=== PATIENT | female | born 1960 | race Two or more races ===

== ENCOUNTER 2024-08-19 04:47 | Emergency (ER) | payer OTHER, MEDICAID ==
[~2024-08-19] VITALS: Ht 144.8 cm; Wt 74.0 kg
[~2024-08-19 04:47] MED LIST: METF-370 PO; ROSU10TA64 PO
--- NOTE | 2024-08-19 04:50 | ED.PDOC ---
History of Present Illness HPI Comments 64 y/o obese F, with a history of bulging disc and sciatica, presents with 1x month history of hematuria and dysuria and 4x day history of left flank pain, chills, and nausea. Pain is a 9/10 in severity. No prior history of symptoms in the past. Denies any abdominal pain, vomiting, fever, chills, or further associated symptoms. Time Seen by MD: 04:50 Reviewed Notes: Nurses Notes, Medications, Allergies Allergies: Coded Allergies: No Known Drug Allergy (Unverified Allergy, Unknown, 08/19/24) Home Meds Active Scripts Gabapentin (Once-Daily) (Gabapentin) 300 Mg Tab, 300 MG PO Q6HP PRN, #30 TAB Prov:BEN JACOBS MD 08/19/24 Cefdinir (Cefdinir) 300 Mg Cap, 1 CAP PO BID for 10 Days, #20 CAP Prov:BEN JACOBS MD 08/19/24 Information Source: Patient Mode of Arrival: Ambulatory Severity: Moderate Timing: Days Duration: Since onset Prehospital treatment: None Past Medical History Past Medical History (Other): Bulding disc sciatica Surgical History: Hernia Repair Surgical History (Other): back surgery All Other Systems: Reviewed and Negative (Comprehensive review of systems are negative unless otherwise stated in HPI) Physical Exam General Appearance: Mild Distress, Obese HEENT: Normal ENT Inspection, Pharynx Normal, TMs Normal Neck: Full Range of Motion, Non-Tender, Normal, Normal Inspection Respiratory: Chest Non-Tender, Lungs Clear, No Accessory Muscle Use, No Respira tory Distress, Normal Breath Sounds Cardiovascular: No Edema, No JVD, No Murmur, No Gallop, Normal Peripheral Pulses, Regular Rate/Rhythm Breast Exam: Deferred Gastrointestinal: No Organomegaly, Non Tender, No Pulsatile Mass, Normal Bowel Sounds, Soft Genitalia: Deferred Pelvic: Deferred Rectal: Deferred Extremities: No calf tenderness, Normal capillary refill, Normal inspection, Normal range of motion, Non-tender, No pedal edema Musculoskeletal : Location: Left Extremity Location: Other (CVA) Apperance: Normal, Tenderness Neurologic: Alert, full time II-XII nml as Tested, No Motor Deficits, Normal Affect, Normal Mood, No Sensory Deficits Cerebellar Function: Normal Reflexes: Normal Skin: Dry, Normal Color, Warm Lymphatic: No Adenopathy Was a procedure done? Was a procedure done?: No Differential Dx Considerations may include: Nephrolithiasis, pyelonephritis, cystitis, musculoskeletal pain, ovarian cysts, ovarian torsion, PID, among others X-Ray, Labs, Meds, VS Vital Signs Date Time Temp Pulse Resp B/P (MAP) Pulse Ox O2 Delivery O2 Flow Rate FiO2 08/19/24 06:07 90 21 98 Room Air 08/19/24 06:07 100.4 90 21 156/74 (101) 98 100.4 08/19/24 06:06 90 21 156/74 08/19/24 06:01 100.4 08/19/24 05:04 99.5 90 16 133/79 (97) 96 99.5 Lab Test 08/19/24 05:13 08/19/24 05:00 Range/Units White Blood Count 10.8 4.4-10.8 10^3/uL Red Blood Count 4.67 4.0-5.20 10^6/uL Hemoglobin 13.8 12.2-16.2 g/dL Hematocrit 40.8 36.0-46.0 % Mean Corpuscular Volume 87.2 80.0-100.0 fL Mean Corpuscular Hemoglobin 29.5 28.0-32.0 pg Mean Corpuscular Hemoglobin Concent 33.8 32.0-36.0 g/dL Red Cell Distribution Width 13.8 11.8-14.3 % Platelet Count 208 140-450 10^3/uL Mean Platelet Volume 8.4 6.9-10.8 fL Neutrophils (%) (Auto) 79.2 37.0-80.0 % Lymphocytes (%) (Auto) 13.9 10.0-50.0 % Monocytes (%) (Auto) 6.6 0.0-12.0 % Eosinophils (%) (Auto) 0.0 0.0-7.0 % Basophils (%) (Auto) 0.3 0.0-2.0 % Neutrophils # (Auto) 8.5 1.6-8.6 10 ^3/uL Lymphocytes # (Auto) 1.5 0.4-5.4 10 ^3/uL Monocytes # (Auto) 0.7 0-1.3 10 ^3/uL Eosinophils # (Auto) 0 0-0.8 10 ^3/uL Basophils # (Auto) 0 0-0.2 10 ^3/uL Nucleated Red Blood Cells 0.1 % Sodium Level 142 136-145 mmol/L Potassium Level 3.2 L 3.5-5.1 mmol/L Chloride Level 106 98-107 mmol/L Carbon Dioxide Level 24 20-31 mmol/L Anion Gap 12 5-15 Blood Urea Nitrogen 12 9-23 mg/dL Creatinine 0.74 0.550-1.02 mg/dL Glomerular Filtration Rate Calc 90 >90 mL/min BUN/Creatinine Ratio 16.2 10.0-20.0 Serum Glucose 110 H 74-106 mg/dL Lactic Acid Level 1.2 0.4-2.0 mmol/L Calcium Level 8.6 L 8.7-10.4 mg/dL Total Bilirubin 0.5 0.2-1.0 mg/dL Aspartate Amino Transferase (AST) 22 <34 U/L Alanine Aminotransferase (ALT) 22 7-40 U/L Alkaline Phosphatase 120 H 46-116 U/L Total Protein 7.0 5.7-8.2 g/dL Albumin 4.4 3.2-4.8 g/dL Lipase 33 12-53 U/L Urine Color Colorless Yellow Urine Clarity Turbid H Clear Urine pH 6.0 5.0-9.0 Urine Specific [place] 1.024 1.001-1.035 Urine Protein 1+ H Negative Urine Ketones Negative Negative Urine Blood 3+ H Negative /uL Urine Nitrite Negative Negative Urine Bilirubin Negative Negative Urine Urobilinogen Normal Negative mg/dL Urine Leukocyte Esterase 3+ Negative /uL Urine RBC 1894 0 - 4 /hpf Urine Microscopic WBC 409 H 0-5 /HPF Urine Squamous Epithelial Cells Few <5 /hpf Urine Bacteria None seen None Seen /hpf Urine Mucus Few None Seen Urine Glucose Normal Normal mg/dL Current Medications Medications (Trade) Dose Ordered Sig/Veronica Route Start Time Stop Time Status Last Admin Ondansetron HCl (Zofran) 4 mg ONCE ONCE IV 08/19/24 05:00 08/19/24 05:01 DC 08/19/24 06:01 Hydromorphone HCl (Dilaudid Injection) 1 mg ONCE ONCE IV 08/19/24 05:00 08/19/24 05:01 DC 08/19/24 06:06 Sodium Chloride 1,000 ml @ 1,000 mls/hr Q1H ONCE IVB 08/19/24 05:00 6/18/25 05:59 DC 08/19/24 06:01 Acetaminophen (Tylenol Tablet Or Capsule) 1,000 mg ONCE ONCE PO 08/19/24 06:00 08/19/24 06:01 DC 08/19/24 06:01 Time of 1ST Reevaluation: 05:20 Reevaluation 1ST: Unchanged Patient Education/Counseling: Diagnosis, Treatment, Need For Follow Up Family Education/Counseling: No Family Present SEPSIS Sepsis Screen Orders/Vitals/Labs Physician Orders Ct Ab Pel Wo Con-No Oral Or Iv (08/19/24 04:56) Blood Culture (08/19/24 04:56) Ceftriaxone 2gm/50ml D5w (Rocephin 2gm/5 (08/19/24 06:15) Vital Signs Date Time Temp Pulse Resp B/P (MAP) Pulse Ox O2 Delivery O2 Flow Rate FiO2 08/19/24 06:07 90 21 98 Room Air 08/19/24 06:07 100.4 90 21 156/74 (101) 98 100.4 08/19/24 06:06 90 21 156/74 08/19/24 06:01 100.4 08/19/24 05:04 99.5 90 16 133/79 (97) 96 99.5 Laboratory Tests Test 08/19/24 05:13 Lactic Acid Level 1.2 mmol/L (0.4-2.0) White Blood Count 10.8 10^3/uL (4.4-10.8) Medications Medications Dose Ordered Sig/Veronica Route Start Time Stop Time Status Last Admin Dose Admin Acetaminophen 1,000 mg ONCE ONCE PO 08/19/24 06:00 08/19/24 06:01 DC 08/19/24 06:01 Hydromorphone HCl 1 mg ONCE ONCE IV 08/19/24 05:00 08/19/24 05:01 DC 08/19/24 06:06 Ondansetron HCl 4 mg ONCE ONCE IV 08/19/24 05:00 08/19/24 05:01 DC 08/19/24 06:01 Sodium Chloride 1,000 ml @ 1,000 mls/hr Q1H ONCE IVB 08/19/24 05:00 08/19/24 05:59 DC 08/19/24 06:01 Departure 1 Departure Time of Disposition: 06:09 Impression: Primary Impression: Left flank pain Additional Impression: UTI (urinary tract infection) Disposition: HOME / SELF CARE / HOMELESS Condition: Stable e-Prescriptions Gabapentin (Once-Daily) (Gabapentin) 300 Mg Tab 300 MG PO Q6HP PRN, #30 TAB Prov: BEN JACOBS MD 08/19/24 Cefdinir (Cefdinir) 300 Mg Cap 1 CAP PO BID for 10 Days, #20 CAP Prov: BEN JACOBS MD 08/19/24 Discharged With: Self Critical Care Note Critical Care Time?: No Stability Stability form required: No Heart Score Heart Score: Heart Score Response (Comments) Value History N/A 0 EKG N/A 0 Age N/A 0 Risk Factors N/A 0 Troponin N/A 0 Total 0 I personally scribed for BEN JACOBS MD ([email or web address]) on 08/19/24 at 04:50. Electronically submitted by Jack Burns [email or web address]). I personally scribed for BEN JACOBS MD ([email or web address]) on 08/19/24 at 05:04. Electronically submitted by Jack Burns [email or web address]). BEN JACOBS MD Aug 19, 2024 04:50
[2024-08-19 05:19] LABS: Urine Bacteria None Seen /hpf (None Seen)
[2024-08-19 05:39] LABS: Basophils # (auto) 0 10 ^3/uL (0-0.2); Basophils % (auto) 0.3 % (0.0-2.0); Eosinophils # (auto) 0 10 ^3/uL (0-0.8); Hematocrit 40.8 % (36.0-46.0); Hemoglobin 13.8 g/dL (12.2-16.2); Lymphocytes # (auto) 1.5 10 ^3/uL (0.4-5.4); Lymphocytes % (auto) 13.9 % (10.0-50.0); Mean Corpuscular Hemoglobin 29.5 pg (28.0-32.0); Mean Corpuscular Hgb Conc. 33.8 g/dL (32.0-36.0); Mean Corpuscular Volume 87.2 fL (80.0-100.0); Monocytes # (auto) 0.7 10 ^3/uL (0-1.3); Monocytes % (auto) 6.6 % (0.0-12.0); Neutrophils # (auto) 8.5 10 ^3/uL (1.6-8.6); Neutrophils % (auto) 79.2 % (37.0-80.0); Nucleated Red Blood Cells % 0.1 %; Platelet Count (auto) 208 10^3/uL (140-450); Red Blood Cells 4.67 10^6/uL (4.0-5.20); Red Cell Distribution Width 13.8 % (11.8-14.3); White Blood Cell 10.8 10^3/uL (4.4-10.8)
[2024-08-19 05:48] LABS: Urine Blood 3+ /uL (Negative); Urine Clarity Turbid (Clear); Urine Color Colorless (Yellow); Urine Mucus FEW (None Seen); Urine Protein, UAD 1+ (Negative); Urine Specific Gravity 1.024 (1.001-1.035); Urine Squamous Epithelial Cell FEW /hpf (<5); Urine Urobilinogen Normal (Negative); Urine WBC 409 /HPF (0-5)
[2024-08-19 05:56] LABS: Alanine Aminotransferase 22 U/L (7-40); Anion Gap 12 (5-15); Aspartate Aminotransferase 22 U/L (<34); BUN/Creatinine Ratio 16.2 (10.0-20.0); Blood Urea Nitrogen 12 mg/dL (9-23); Carbon Dioxide 24 mmol/L (20-31); Chloride 106 mmol/L (98-107); Lipase 33 U/L (12-53); Sodium 142 mmol/L (136-145)
--- NOTE | 2024-08-19 05:56 | DVH ---
EXAM: CT Abdomen and Pelvis Without Intravenous Contrast CLINICAL INDICATION: Pain TECHNIQUE: Axial computed tomography images of the abdomen and pelvis without intravenous contrast. This CT exam was performed using one or more of the following dose reduction techniques: automated exposure control, adjustment of the mA and/or kV according to patient size, and/or use of iterative r econstruction technique. COMPARISON: No relevant prior studies available. FINDINGS: ARTIFACTS: Motion artifact. LUNG BASES: Unremarkable. No mass. No consolidation. MEDIASTINUM: Small esophageal hiatal hernia. ABDOMEN: LIVER: Hepatomegaly with fatty infiltration. GALLBLADDER AND BILE DUCTS: Unremarkable. No calcified stones. No ductal dilation. PANCREAS: Unremarkable. No ductal dilation. SPLEEN: Unremarkable. No splenomegaly. ADRENALS: Unremarkable. No mass. KIDNEYS AND URETERS: Unremarkable. No stones within either kidney. No hydronephrosis. STOMACH AND BOWEL: Fecal retention in the colon consistent with constipation. No obstruction. No m ucosal thickening. PELVIS: APPENDIX: No findings to suggest acute appendicitis. BLADDER: Unremarkable. No stones. REPRODUCTIVE: Unremarkable as visualized. ABDOMEN and PELVIS: INTRAPERITONEAL SPACE: Unremarkable. No free air. No significant fluid collection. BONES/JOINTS: No acute fracture. No dislocation. SOFT TISSUES: Unremarkable. VASCULATURE: Unremarkable. No abdominal aortic aneurysm. LYMPH NODES: Unremarkable. No enlarged lymph nodes. IMPRESSION: 1. Small esophageal hiatal hernia. 2. Hepatomegaly with fatty infiltration. 3. Fecal retention in the colon consistent with constipation. 4. No obstructive uropathy.
[2024-08-19 05:57] LABS: Albumin 4.4 g/dL (3.2-4.8); Bilirubin, Total 0.5 mg/dL (0.2-1.0)
[2024-08-19 05:58] LABS: Alkaline Phosphatase 120 U/L (46-116); Calcium 8.6 mg/dL (8.7-10.4); Glucose 110 mg/dL (74-106); Potassium 3.2 mmol/L (3.5-5.1)
[2024-08-19] MEDS: ONDANSETRON HCL 4 MG/2 ML VIAL IV ONE (06:01)
[2024-08-19] MEDS: SODIUM CHLORIDE 0.9% 1,000 ML IVB ONE (06:01)
[2024-08-19] MEDS: ACETAMINOPHEN 500 MG TAB or CAP PO ONE (06:01)
[2024-08-19] MEDS: HYDROmorphone HCL 2 MG/ML VL/or syr IV ONE (06:06)
[2024-08-19] MEDS ORDERED: CEFD300C2 PO (06:07)
[2024-08-19] MEDS ORDERED: GABA300T4 PO (06:07)
[2024-08-19] MEDS: cefTRIAXone 2GM/50ML D5W 50 ML IV ONE (06:18)
[2024-08-19 06:55] VITALS: TEMP 99.8
[2024-08-19 08:12] VITALS: BP 107/53; PULSE 76; RESP 18; O2SAT 94
[2024-08-19] MEDS ORDERED: GABA-339 PO (16:27)
[2024-08-20] MEDS ORDERED: MELO15TA29 PO (16:27)
== END 2024-08-19 08:13 | disposition home or self-care (01) ==
LOC: ER 04:47
DX: N39.0 Urinary tract infection, site not specified (principal); Z98.890 Other specified postprocedural states
CPT/HCPCS: 36415; 74176; 80053; 81001; 83605; 83690; 85025; 87040; 96365; 96375; 99285; J0696; J1171; J2405; J7030

== ENCOUNTER 2024-08-20 08:15 | Inpatient (IN) | payer OTHER, MEDICAID ==
[~2024-08-20] VITALS: Ht 144.8 cm; Wt 75.3 kg
[~2024-08-20 08:15] MED LIST changes: +CEFD300C2 PO; +GABA-339 PO; +GABA300T4 PO
--- NOTE | 2024-08-20 08:39 | ED.PDOC ---
General HPI Comments 64 year old female presents to the ED with a chief complaint of LT flank pain onset 3 days. Patient has been experiencing LT flank pain for the past 3 days, radiating to LT groin region, rates pain 8/10. She has also been experiencing hematuria for the past 3 days. Took Tylenol for pain with no relief of symptoms. Denies any fevers, chills, chest pain, shortness of breath, dizziness, headache. No other symptoms or modifying factors present at this time. Chief Complaint: Flank Pain Time Seen by MD: 08:30 Reviewed notes: Medications, Allergies Allergies: Coded Allergies: No Known Drug Allergy (Unverified Allergy, Unknown, 08/19/24) Home Meds Active Scripts Gabapentin (Once-Daily) (Gabapentin) 300 Mg Tab, 300 MG PO Q6HP PRN, #30 TAB Prov:BEN JACOBS MD 08/19/24 Cefdinir (Cefdinir) 300 Mg Cap, 1 CAP PO BID for 10 Days, #20 CAP Prov:BEN JACOBS MD 08/19/24 Information Source: Patient Mode of Arrival: Ambulatory Severity: Moderate Timing: Days Duration: Since onset Prehospital treatment: Pain Meds (Tylenol) Onset: Spontaneous Symptoms: Hematuria History of: None Location: Suprapubic (LT), (L)Flank associated signs and symptoms: Hematuria Past Medical History PAST MEDICAL HISTORY: Denies Surgical History: Hernia Repair STROBOROMA OPERATOR History: No Pertinent STROBOROMA OPERATOR History Family History Family History: Reviewed,noncontributory to illness, No family hx of Cancer, No family hx of DM, No family hx of Heart ramin, No family hx of HTN, No family hx ofKidney ramin, No family hx of Liver ramin, No family hx of Lung ramin, No family hx of Stroke Social History Smoker: Non-Smoker Alcohol: Denies ETOH Use Drugs: Denies Drug Use Lives In: Home Constitutional: denies: chills, diaphoresis, fatigue, fever, malaise, sweats, weakness, others EENTM: denies: blurred vision, double vision, ear bleeding, ear discharge, ear drainage, ear pain, ear ringing, eye pain, eye redness, hearing loss, mouth pain, mouth swelling, nasal discharge, nose bleeding, nose congestion, nose pain, photophobia, tearing, throat pain, throat swelling, voice changes, others Respiratory: denies: cough, hemoptysis, orthopnea, SOB at rest, shortness of breath, SOB with excertion, stridor, wheezing, others Cardiovascular: denies: chest pain, dizzy spells, diaphoresis, Dyspnea on exertion, edema, irregular heart beat, left arm pain, lightheadedness, palpit ations, PND, syncope, others Gastrointestinal: denies: abdomen distended, abdominal pain, blood streaked b owels, constipated, diarrhea, dysphagia, difficulty swallowing, hematemesis, melena, nausea, poor appetite, poor fluid intake, rectal bleeding, rectal pain, vomiting, others Genitourinary: reports: flank pain (LT ), hematuria, others (LT groin pain); denies: abnormal vagina bleeding, burning, dyspareunia, dysuria, frequency, incontinence, pain, , vagina discharge, urgency Neurological: denies: dizziness, fainting, headache, left sided numbness, left sided weakness, numbness, paresthesia, pre-existing deficit, right sided numbness, right sided weakness, seizure, speech problems, tingling, tremors, weakness, others Musculoskeletal: denies: back pain, gout, joint pain, joint swelling, muscle pain, muscle stiffness, neck pain, others Integumetry: denies: bruises, change in color, change in hair/nails, dryness, laceration, lesions, lumps, rash, wounds, others Allergic/Immunocompromised: denies: Difficulty Healing, Frequent Infections, Hives, Itching, others Hematologic/Lymphatic: denies: anemia, blood clots, easy bleeding, easy bruising, swollen glands, others Endocrine: denies: excessive hunger, excessive sweating, excessive thirst, excessive urination, flushing, intolerance to cold, intolerance to heat, unexplained weight gain, unexplained weight loss, others Psychiatric: denies: anxiety, bipolar disorder, depression, hopeless, panic disorder, schizophrenia, sleepless, suicidal, others All Other Systems: Reviewed and Negative Physical Exam General Appearance: Normal HEENT: Normal ENT Inspection, Pharynx Normal, TMs Normal Neck: Full Range of Motion, Non-Tender, Normal, Normal Inspection Respiratory: Chest Non-Tender, Lungs Clear, No Accessory Muscle Use, No Respiratory Distress, Normal Breath Sounds Cardiovascular: No Edema, No JVD, No Murmur, No Gallop, Normal Peripheral Pulses, Regular Rate/Rhythm Breast Exam: Deferred Gastrointestinal: No Organomegaly, Non Tender, No Pulsatile Mass, Normal Bowel Sounds, Soft Genitalia: Deferred Pelvic: Deferred Rectal: Deferred Extremities: No calf tenderness, Normal capillary refill, Normal inspection, Normal range of motion, Non-tender, No pedal edema Musculoskeletal : Apperance: Normal Neurologic: Alert, 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 Was a procedure done?: No Differential Diagnosis Kidney stone (Female): Pancreatitis, Pyelonephritis, Renal failure, Strain, Urolithiasis Kidney stone (Male): N/A Penile/Scrotal: N/A Urinary Problem (Male): N/A Urinary Problem (Female): Pyelonephritis, Urinary retention, Urolithiasis, UTI X-Ray, Labs, Meds, VS Vital Signs Date Time Temp Pulse Resp B/P (MAP) Pulse Ox O2 Delivery O2 Flow Rate FiO2 08/20/24 08:30 98.4 98 18 133/57 (82) 95 98.4 Lab Test 08/20/24 08:42 08/20/24 08:27 Range/Units White Blood Count 11.0 H 4.4-10.8 10^3/uL Red Blood Count 4.28 4.0-5.20 10^6/uL Hemoglobin 12.7 12.2-16.2 g/dL Hematocrit 36.7 # 36.0-46.0 % Mean Corpuscular Volume 85.7 80.0-100.0 fL Mean Corpuscular Hemoglobin 29.7 28.0-32.0 pg Mean Corpuscular Hemoglobin Concent 34.6 32.0-36.0 g/dL Red Cell Distribution Width 13.4 11.8-14.3 % Platelet Count 203 140-450 10^3/uL Mean Platelet Volume 8.2 6.9-10.8 fL Neutrophils (%) (Auto) 81.0 H 37.0-80.0 % Lymphocytes (%) (Auto) 11.3 10.0-50.0 % Monocytes (%) (Auto) 7.4 0.0-12.0 % Eosinophils (%) (Auto) 0.0 0.0-7.0 % Basophils (%) (Auto) 0.3 0.0-2.0 % Neutrophils # (Auto) 8.9 H 1.6-8.6 10 ^3/uL Lymphocytes # (Auto) 1.2 0.4-5.4 10 ^3/uL Monocytes # (Auto) 0.8 0-1.3 10 ^3/uL Eosinophils # (Auto) 0 0-0.8 10 ^3/uL Basophils # (Auto) 0 0-0.2 10 ^3/uL Nucleated Red Blood Cells 0.1 % Sodium Level 141 136-145 mmol/L Potassium Level 3.4 L 3.5-5.1 mmol/L Chloride Level 107 98-107 mmol/L Carbon Dioxide Level 26 20-31 mmol/L Anion Gap 8 5-15 Blood Urea Nitrogen 8 L 9-23 mg/dL Creatinine 0.72 0.550-1.02 mg/dL Glomerular Filtration Rate Calc 93 >90 mL/min BUN/Creatinine Ratio 11.1 10.0-20.0 Serum Glucose 129 H 74-106 mg/dL Calcium Level 9.2 8.7-10.4 mg/dL Urine Color Colorless Yellow Urine Clarity Turbid H Clear Urine pH 6.5 5.0-9.0 Urine Specific [place] 1.014 1.001-1.035 Urine Protein Trace H Negative Urine Ketones 1+ H Negative Urine Blood 3+ H Negative /uL Urine Nitrite Negative Negative Urine Bilirubin Negative Negative Urine Urobilinogen Normal Negative mg/dL Urine Leukocyte Esterase 2+ Negative /uL Urine RBC 1846 0 - 4 /hpf Urine Microscopic WBC 114 H 0-5 /HPF Urine Squamous Epithelial Cells Few <5 /hpf Urine Bacteria None seen None Seen /hpf Urine Mucus Few None Seen Urine Glucose Normal Normal mg/dL [facility] [id number] [place] [id number] Ph: [phone] DIAGNOSTIC IMAGING Diagnostic Imaging Report : [id number] Signed PATIENT: ISELA SEAMANIAACCT: [id number] UNIT: [id number] : 1960 LOC: ER ROOM / BED: / AGE / SEX: 64 / F ADM STATUS: REG ER SERVICE [id number] ORDERING PHYSICIAN: JAY DELANEY MD PROCEDURE(s): ABPL - CT AB PEL WO CON-NO ORAL OR IV REASON: left flank pain ORDER NUMBER(s): [id number], ACCESSION NUMBER(s): [id number] CT CT AB PEL WO CON-NO ORAL OR IV INDICATION: left flank pain EXAM DATE: 08/20/2024 08:40 AM COMPARISON: CT CT AB PEL WO CON-NO ORAL OR IV on DOS: 08/19/24 RADIATION DOSE: CTDIvol: 11 mGy, DLP: 577 mGy*cm PROCEDURE: Helical CT images were obtained of the abdomen and pelvis without IV contrast Sagittal and coronal reconstructions are provided. ORAL CONTRAST: None. ADDITIONAL IMAGES / REFORMATS: None All CT scans at this medical facility are performed using dose modulation techniques as appropriate to a performed exam including the following: Automated exposure control was utilized; adjustment of the MA and/or KV according to patient size; and use of iterative reconstruction technique. FINDINGS: LUNG BASE: Normal. LIVER: Hepatic steatosis. GALLBLADDER AND BILIARY TREE: No calcified gallstones. Normal caliber wall. No intra- or extrahepatic biliary ductal dilation. PANCREAS: Normal. SPLEEN: Normal. BOWEL: Normal. Visualized appendix appears normal. ADRENALS: Normal. KIDNEYS AND URETER: Normal. BLADDER: Normal. REPRODUCTIVE ORGANS: Normal. LYMPH NODES:No lymphadenopathy. PERITONEUM: No ascites or free air. No other fluid collection. VESSELS: Scattered atherosclerotic calcifications are noted. RETROPERITONEUM: Normal. ABDOMINAL WALL: Normal. BONES: Scattered osseous degenerative changes are noted. IMPRESSION: No acute intraabdominal abnormality. No kidney stones or hydronephrosis is visualized. Hepatic steatosis. ATED BY: ROMERO MOTT MD DICTATED DATE/TIME: 08/20/24928 SIGNED BY: ROMERO MOTT MD SIGNED DATE/TIME: 08/20/24928 CC: Time of 1ST Reevaluation: 09:00 Reevaluation 1ST: Unchanged Patient Education/Counseling: Diagnosis, Treatment, Prognosis Family Education/Counseling: No Family Present SEPSIS Sepsis Screen Physician Orders Ct Ab Pel Wo Con-No Oral Or Iv (08/20/24 08:34) Vital Signs Date Time Temp Pulse Resp B/P (MAP) Pulse Ox O2 Delivery O2 Flow Rate FiO2 08/20/24 08:30 98.4 98 18 133/57 (82) 95 98.4 Laboratory Tests Test 08/20/24 08:42 White Blood Count 11.0 10^3/uL (4.4-10.8) H Departure 1 Departure Time of Disposition: 10:12 (Patient with concern for renal colic versus complicated urinary tract infection. Patient is still having a lot of pain had hematuria and white cells concerning for complicated UTI. We will admit patient for further workup) Impression: Primary Impression: Complicated UTI (urinary tract infection) Additional Impression: Left lower quadrant pain Disposition: ADMITTED INPATIENT Admit to: Med Surg Condition: Serious Critical Care Note Critical Care Time?: Yes Critical care comment: Intractable abdominal pain Authorized and Performed by: Jay Delaney MD Total critical care time: Approximately 39 minutes Due to a high probability of clinically significant, life threatening deterioration, the patient required my highest level of preparedness to intervene emergently and I personally spent this critical care time directly and personally managing the patient. This critical care time included obtaining a h istory; examining the patient; pulse oximetry; ordering and review of studies; arranging urgent treatment with development of a management plan; evaluation of patient's response to treatment; frequent reassessment; and, discussions with other providers. This critical care time was performed to assess and manage the high probability of imminent, life-threatening deterioration that could result in multi-organ failure. It was exclusive of separately billable procedures and treating other patients and teaching time. Please see my other sections and the rest of the note for further information on patient assessment and treatment. Stability Stability form required: No I personally scribed for JAY DELANEY MD ([email or web address]) on 08/20/24 at 08:38. Electronically submitted by Kenna Bateman ([email or web address]). I personally scribed for JAY DELANEY MD ([email or web address]) on 08/20/24 at 09:56. Electronically submitted by Kenna Bateman ([email or web address]). JAY DELANEY MD Aug 20, 2024 08:38
[2024-08-20 08:56] LABS: Basophils # (auto) 0 10 ^3/uL (0-0.2); Basophils % (auto) 0.3 % (0.0-2.0); Eosinophils # (auto) 0 10 ^3/uL (0-0.8); Hematocrit 36.7 % (36.0-46.0); Hemoglobin 12.7 g/dL (12.2-16.2); Lymphocytes # (auto) 1.2 10 ^3/uL (0.4-5.4); Lymphocytes % (auto) 11.3 % (10.0-50.0); Mean Corpuscular Hemoglobin 29.7 pg (28.0-32.0); Mean Corpuscular Hgb Conc. 34.6 g/dL (32.0-36.0); Mean Corpuscular Volume 85.7 fL (80.0-100.0); Monocytes # (auto) 0.8 10 ^3/uL (0-1.3); Monocytes % (auto) 7.4 % (0.0-12.0); Neutrophils # (auto) 8.9 10 ^3/uL (1.6-8.6); Nucleated Red Blood Cells % 0.1 %; Platelet Count (auto) 203 10^3/uL (140-450); Red Blood Cells 4.28 10^6/uL (4.0-5.20); Red Cell Distribution Width 13.4 % (11.8-14.3)
[2024-08-20 09:01] LABS: Chloride 107 mmol/L (98-107); Sodium 141 mmol/L (136-145)
[2024-08-20 09:02] LABS: Anion Gap 8 (5-15); Carbon Dioxide 26 mmol/L (20-31)
[2024-08-20 09:03] LABS: Calcium 9.2 mg/dL (8.7-10.4)
[2024-08-20 09:05] LABS: Potassium 3.4 mmol/L (3.5-5.1)
[2024-08-20 09:07] LABS: BUN/Creatinine Ratio 11.1 (10.0-20.0)
[2024-08-20 09:08] LABS: Blood Urea Nitrogen 8 mg/dL (9-23); Glucose 129 mg/dL (74-106)
[2024-08-20 09:17] LABS: Urine Bacteria None Seen /hpf (None Seen)
[2024-08-20 09:23] LABS: Urine Blood 3+ /uL (Negative); Urine Clarity Turbid (Clear); Urine Color Colorless (Yellow); Urine Mucus FEW (None Seen); Urine Protein, UAD TRACE (Negative); Urine Specific Gravity 1.014 (1.001-1.035); Urine Squamous Epithelial Cell FEW /hpf (<5); Urine Urobilinogen Normal (Negative); Urine WBC 114 /HPF (0-5); Urine pH 6.5 (5.0-9.0)
--- NOTE | 2024-08-20 09:32 | DVH ---
CT CT AB PEL WO CON-NO ORAL OR IV INDICATION: left flank pain EXAM DATE: 08/20/2024 08:40 AM COMPARISON: CT CT AB PEL WO CON-NO ORAL OR IV on DOS: 08/19/24 RADIATION DOSE: CTDIvol: 11 mGy, DLP: 577 mGy*cm PROCEDURE: Helical CT images were obtained of the abdomen and pelvis without IV contrast Sagittal and coronal reconstructions are provided. ORAL CONTRAST: None. ADDITIONAL IMAGES / REFORMATS: None All C T scans at this medical facility are performed using dose modulation techniques as appropriate to a p erformed exam including the following: Automated exposure control was utilized; adjustment of the MA and/or KV according to patient size; and use of iterative reconstruction technique. FINDINGS: LUNG BASE: Normal. LIVER: Hepatic steatosis. GALLBLADDER AND BILIARY TREE: No calcified gallstones. Normal caliber wall. No intra- or extrahepatic biliary ductal dilation. PANCREAS: Normal. SPLEEN: Normal. BOWEL: Normal. Visualized appendix appears normal. ADRENALS: Normal. KIDNEYS AND URETER: Normal. BLADDER: Normal. REPRODUCTIVE ORGANS: Normal. LYMPH NODES:No lymphadenopathy. PERITONEUM: No ascites or free air. No other fluid collection. VESSELS: Scattered atherosclerotic calcifications are noted. RETROPERITONEUM: Normal. ABDOMINAL WALL: Normal. BONES: Scattered osseous degenerative changes are noted. IMPRESSION: No acute intraabdominal abnormality. No kidney stones or hydronephrosis is visualized. Hepatic steatosis.
[2024-08-20] MEDS ORDERED: cefTRIAXone 1GM/50ML D5W 50 ML IV ONE (10:15)
[2024-08-20] MEDS ORDERED: HYDROcodone-ACET 5/325MG TAB PO PRN (12:45)
--- NOTE | 2024-08-20 13:08 | DVHHP2 ---
History of Present Illness Reason for Visit: Left flank pain History of Present Illness Radha Santana is a 64-year-old female with past medical history of hernia repair and back surgery who presents to the ED with left flank pain x3 days. Upon examination patient states that the pain is 8/10 aching and constant. She denies any recent trauma or injury, recent sick contacts, recent travels, recent ingestion of spoiled food, chest pain, shortness of breath, fever, chills, lightheadedness, weakness, dizziness, nausea, vomiting, or diarrhea. Past Surgical History: Hernia Repair, Other (Back surgery) Family History: None Smoke: No ALCOHOL: none Drugs: None Lives: with Family Domestic Violence: Neg Review of Systems Musculoskeletal: other (Left flank pain) Allergies: Coded Allergies: No Known Drug Allergy (Unverified Allergy, Unknown, 08/19/24) Exam Vital Signs Vital Signs Date Time Temp Pulse Resp B/P (MAP) Pulse Ox O2 Delivery O2 Flow Rate FiO2 08/20/24 08:30 98.4 98 18 133/57 (82) 95 98.4 General Appearance: Alert, Oriented X3, Cooperative, No acute distress HEENT: Atraumatic, PERRLA, EOMI, Mucous membr. moist/pink Respiratory: Clear to auscultation, Normal air movement Cardiovascular: Regular rate, Normal S1, Normal S2 Abdominal: Normal bowel sounds, Soft Extremities: No cyanosis, Normal pulses Skin: No significant lesion Neuro: Normal gait, Normal speech, Strength at 5/5 X4 ext, Normal tone, Sensation intact Psych/Mental Status: Mental status NL, Mood NL Labs/Xrays Labs Test 08/20/24 10:30 08/20/24 08:42 08/20/24 08:27 Range/Units Lactic Acid Level 0.9 0.4-2.0 mmol/L White Blood Count 11.0 H 4.4-10.8 10^3/uL Red Blood Count 4.28 4.0-5.20 10^6/uL Hemoglobin 12.7 12.2-16.2 g/dL Hematocrit 36.7 # 36.0-46.0 % Mean Corpuscular Volume 85.7 80.0-100.0 fL Mean Corpuscular Hemoglobin 29.7 28.0-32.0 pg Mean Corpuscular Hemoglobin Concent 34.6 32.0-36.0 g/dL Red Cell Distribution Width 13.4 11.8-14.3 % Platelet Count 203 140-450 10^3/uL Mean Platelet Volume 8.2 6.9-10.8 fL Neutrophils (%) (Auto) 81.0 H 37.0-80.0 % Lymphocytes (%) (Auto) 11.3 10.0-50.0 % Monocytes (%) (Auto) 7.4 0.0-12.0 % Eosinophils (%) (Auto) 0.0 0.0-7.0 % Basophils (%) (Auto) 0.3 0.0-2.0 % Neutrophils # (Auto) 8.9 H 1.6-8.6 10 ^3/uL Lymphocytes # (Auto) 1.2 0.4-5.4 10 ^3/uL Monocytes # (Auto) 0.8 0-1.3 10 ^3/uL Eosinophils # (Auto) 0 0-0.8 10 ^3/uL Basophils # (Auto) 0 0-0.2 10 ^3/uL Nucleated Red Blood Cells 0.1 % Sodium Level 141 136-145 mmol/L Potassium Level 3.4 L 3.5-5.1 mmol/L Chloride Level 107 98-107 mmol/L Carbon Dioxide Level 26 20-31 mmol/L Anion Gap 8 5-15 Blood Urea Nitrogen 8 L 9-23 mg/dL Creatinine 0.72 0.550-1.02 mg/dL Glomerular Filtration Rate Calc 93 >90 mL/min BUN/Creatinine Ratio 11.1 10.0-20.0 Serum Glucose 129 H 74-106 mg/dL Calcium Level 9.2 8.7-10.4 mg/dL Urine Color Colorless Yellow Urine Clarity Turbid H Clear Urine pH 6.5 5.0-9.0 Urine Specific [place] 1.014 1.001-1.035 Urine Protein Trace H Negative Urine Ketones 1+ H Negative Urine Blood 3+ H Negative /uL Urine Nitrite Negative Negative Urine Bilirubin Negative Negative Urine Urobilinogen Normal Negative mg/dL Urine Leukocyte Esterase 2+ Negative /uL Urine RBC 1846 0 - 4 /hpf Urine Microscopic WBC 114 H 0-5 /HPF Urine Squamous Epithelial Cells Few <5 /hpf Urine Bacteria None seen None Seen /hpf Urine Mucus Few None Seen Urine Glucose Normal Normal mg/dL CT CT AB PEL WO CON-NO ORAL OR IV INDICATION: left flank pain EXAM DATE: 08/20/2024 08:40 AM COMPARISON: CT CT AB PEL WO CON-NO ORAL OR IV on DOS: 08/19/24 RADIATION DOSE: CTDIvol: 11 mGy, DLP: 577 mGy*cm PROCEDURE: Helical CT images were obtained of the abdomen and pelvis without IV contrast Sagittal and coronal reconstructions are provided. ORAL CONTRAST: None. ADDITIONAL IMAGES / REFORMATS: None All CT scans at this medical facility are performed using dose modulation techniques as appropriate to a performed exam including the following: Automated exposure control was utilized; adjustment of the MA and/or KV according to patient size; and use of iterative reconstruction technique. FINDINGS: LUNG BASE: Normal. LIVER: Hepatic steatosis. GALLBLADDER AND BILIARY TREE: No calcified gallstones. Normal caliber wall. No intra- or extrahepatic biliary ductal dilation. PANCREAS: Normal. SPLEEN: Normal. BOWEL: Normal. Visualized appendix appears normal. ADRENALS: Normal. KIDNEYS AND URETER: Normal. BLADDER: Normal. REPRODUCTIVE ORGANS: Normal. LYMPH NODES:No lymphadenopathy. PERITONEUM: No ascites or free air. No other fluid collection. VESSELS: Scattered atherosclerotic calcifications are noted. RETROPERITONEUM: Normal. ABDOMINAL WALL: Normal. BONES: Scattered osseous degenerative changes are noted. IMPRESSION: No acute intraabdominal abnormality. No kidney stones or hydronephrosis is visualized. Hepatic steatosis. Assessment/Plan Assessment/Plan Assessment Intractable left flank pain likely due to acute cystitis Leukocytosis likely due to acute cystitis Hypokalemia Hepatic steatosis History of hernia repair History of back surgery Plan Admit to tele [facility] IV antibiotics-ceftriaxone NS 2 L given ED Antiemetics Pain management Blood cultures no echo available CT abdomen pelvis noted UA Kidney ultrasound ordered Diet Home medications reconciled DVT prophylaxis-not indicated patient ambulating PUD prophylaxis-not indicated no history of GERD or GI bleed Discussed plan of care with patient and nurse Plan discussed with: Patient My Orders Orders - GENEVA SINGLETON Procedure Category Date Status Time Kidney US 08/20/24 Logged 12:39 Ceftriaxone 1gm/50ml PHA 08/20/24 Logged D5w (Rocephin) 12:45 Potassium Er Tablet PHA 08/20/24 Logged (Klor-Con Tablet) 12:45 Admit ADMIT 08/20/24 Transmitted 12:39 Allergies SHAILA 08/20/24 In Process 12:39 Code Status CODE 08/20/24 Transmitted 12:39 Hydrocodone-Acet PHA 08/20/24 Logged 5/325mg Tab ([place] 12:45 Ondansetron Hcl PHA 08/20/24 Logged (Zofran) 12:45 Complete Blood Count LAB 08/21/24 Verified 04:00 Comprehensive LAB 08/21/24 Verified Metabolic Panel 04:00 Cardiac DIET 08/20/24 Transmitted Diet-2gna,Lofat,Lochol Lunch Acetaminophen Tablet PHA 08/20/24 Logged (Tylenol Tablet) 12:45 Morphine Sulfate PHA 08/20/24 Logged Injection 12:45 Sequential SHAILA 08/20/24 In Process Compression Device Atorvastatin (Lipitor) PHA 08/20/24 Verified 22:00 Date of Service: Aug 20, 2024 Billing Provider: GENEVA SINGLETON Common Visit Codes: [id number] INP/OBS CARE (HIGH) GENEVA SINGLETON Aug 20, 2024 13:08
--- NOTE | 2024-08-20 13:43 | DVH ---
INDICATION: left flank pain TECHNIQUE: Multiple real-time sonographic images of the kidneys and bladder were obtained. COMPARISON: None FINDINGS: RIGHT kidney measures 10.8 cm in length. No hydronephrosis. LEFT kidney measures 11.3 cm in length. No hydronephrosis. No large intraluminal masses are seen in the bladder. IMPRESSION: 1. Unremarkable examination.
[2024-08-20] MEDS ORDERED: MELO15TA29 PO (16:27)
[2024-08-20] MEDS: SODIUM CHLORIDE 0.9% 1,000 ML IV ONE ×2 (18:10→19:00)
[2024-08-20] MEDS: MORPHINE SULFATE 4 MG/ML SYR/VIAL IV ONE (18:10)
[2024-08-20] MEDS: cefTRIAXone 1GM/50ML D5W 50 ML IV SCH (18:16)
[2024-08-20] MEDS: ONDANSETRON HCL 4 MG/2 ML VIAL IV ONE (18:17)
[2024-08-20] MEDS: MORPHINE SULFATE INJ 2 MG/ml SYRG IV PRN (18:18)
[2024-08-20] MEDS: POTASSIUM CHL 20 Meq TABLET PO ONE (20:15)
[2024-08-20] MEDS: ATORVASTATIN 20 MG TAB PO SCH (22:00)
[2024-08-20 22:34] VITALS: BP 143/61; PULSE 77; RESP 18; TEMP 98.9; O2SAT 97
[2024-08-20 22:59] VITALS: BP 144/63; PULSE 77; RESP 18; TEMP 98.9; O2SAT 97
[2024-08-21] VITALS (8 sets, daily range): BP systolic 91–136; BP diastolic 44–67; PULSE 77–86; RESP 16–18; TEMP 98.5–99.3; O2SAT 92–97
[2024-08-21 06:24] LABS: Basophils # (auto) 0 10 ^3/uL (0-0.2); Basophils % (auto) 0.2 % (0.0-2.0); Eosinophils # (auto) 0 10 ^3/uL (0-0.8); Hematocrit 33.9 % (36.0-46.0); Hemoglobin 11.7 g/dL (12.2-16.2); Lymphocytes # (auto) 2.2 10 ^3/uL (0.4-5.4); Lymphocytes % (auto) 21.8 % (10.0-50.0); Mean Corpuscular Hemoglobin 29.6 pg (28.0-32.0); Mean Corpuscular Hgb Conc. 34.5 g/dL (32.0-36.0); Mean Corpuscular Volume 85.9 fL (80.0-100.0); Monocytes # (auto) 0.8 10 ^3/uL (0-1.3); Monocytes % (auto) 8.1 % (0.0-12.0); Neutrophils # (auto) 7.1 10 ^3/uL (1.6-8.6); Neutrophils % (auto) 69.9 % (37.0-80.0); Nucleated Red Blood Cells % 0.1 %; Platelet Count (auto) 195 10^3/uL (140-450); Red Blood Cells 3.94 10^6/uL (4.0-5.20); Red Cell Distribution Width 13.5 % (11.8-14.3); White Blood Cell 10.2 10^3/uL (4.4-10.8)
[2024-08-21 06:36] LABS: Alanine Aminotransferase 19 U/L (7-40); Albumin 3.7 g/dL (3.2-4.8); Alkaline Phosphatase 97 U/L (46-116); Anion Gap 12 (5-15); Aspartate Aminotransferase 19 U/L (<34); BUN/Creatinine Ratio 14.8 (10.0-20.0); Carbon Dioxide 23 mmol/L (20-31); Chloride 106 mmol/L (98-107); Glucose 97 mg/dL (74-106); Sodium 141 mmol/L (136-145)
[2024-08-21 06:37] LABS: Bilirubin, Total 0.4 mg/dL (0.2-1.0)
[2024-08-21 06:44] LABS: Blood Urea Nitrogen 8 mg/dL (9-23); Calcium 8.4 mg/dL (8.7-10.4); Potassium 3.2 mmol/L (3.5-5.1)
--- NOTE | 2024-08-21 12:49 | DVHPN2 ---
Reviewed: Care Plan, H&P, Labs, Medications, Previous Orders, Radiology Changes from previous H/P or p: No Changes Musculoskeletal: other (Left flank pain) Objective Vitals Vital Signs Date Time Temp Pulse Resp B/P (MAP) Pulse Ox O2 Delivery O2 Flow Rate FiO2 08/21/24 12:39 98.5 80 16 136/44 (74) 95 98.5 08/20/24 18:13 Room Air Intake/Output Intake and Output 08/21/24 07:00 Intake Total 2450 ml Output Total 4 ml Balance 2446 ml Intake Oral 400 ml IV Total 2050 ml Output Urine Total 4 ml Medications Current Medications Medications Dose Ordered Sig/Veronica Route Start Time Stop Time Status Last Admin Dose Admin Ceftriaxone Sodium 50 ml @ 100 mls/hr DAILY@09 IV 08/20/24 12:45 08/21/24 09:20 100 MLS/HR Acetaminophen/ Hydrocodone Bitart 1 tab Q4HP PRN PO 08/20/24 12:45 Ondansetron HCl 4 mg Q4HP PRN IV 08/20/24 12:45 Acetaminophen 650 mg Q6HP PRN PO 08/20/24 12:45 Morphine Sulfate 2 mg Q4HPRN PRN IV 08/20/24 12:45 08/21/24 09:21 2 MG Atorvastatin Calcium 10 mg HS PO 08/20/24 22:00 08/20/24 22:00 10 MG Laboratory Results Laboratory Tests 08/21/24 05:29 Chemistry Test 08/21/24 05:29 Albumin 3.7 g/dL (3.2-4.8) Calcium Level 8.4 mg/dL (8.7-10.4) L Total Protein 6.0 g/dL (5.7-8.2) LFT Test 08/21/24 05:29 Alanine Aminotransferase (ALT) 19 U/L (7-40) Alkaline Phosphatase 97 U/L (46-116) Aspartate Amino Transferase (AST) 19 U/L (<34) Total Bilirubin 0.4 mg/dL (0.2-1.0) Urinalysis Test 08/20/24 08:27 Urine Color Colorless (Yellow) Urine Clarity Turbid (Clear) H Urine pH 6.5 (5.0-9.0) Urine Specific [place] 1.014 (1.001-1.035) Urine Protein Trace (Negative) H Urine Ketones 1+ (Negative) H Urine Blood 3+ /uL (Negative) H Urine Nitrite Negative (Negative) Urine Bilirubin Negative (Negative) Urine Urobilinogen Normal mg/dL (Negative) Urine Leukocyte Esterase 2+ /uL (Negative) Urine RBC 1846 /hpf (0 - 4) Urine Microscopic WBC 114 /HPF (0-5) H Urine Squamous Epithelial Cells Few /hpf (<5) Urine Bacteria None seen /hpf (None Seen) Urine Mucus Few (None Seen) Urine Glucose Normal mg/dL (Normal) Microbiology Microbiology Date/Time Source Procedure Growth Status 08/20/24 10:30 Blood Blood Culture - Preliminary NO GROWTH AFTER 24 HOURS OF INCUBATION. Resulted Labs and/or images reviewed: Labs reviewed by me, Image(s) reviewed by me Assessment/Plan Assessment/Plan Acute left flank pain secondary to acute pyelonephritis: CT abdomen pelvis without contrast negative for any kidney stones Acute pyelonephritis Acute urinary tract infection: Blood cultures urine cultures Rocephin Sepsis secondary to urinary tract infection History of hernia surgery History of back surgery : [place] [facility] hypokalemia potassium 3.2: Replace potassium Daughter at bedside is the nurse navigator Plan discussed with: Patient Date of Service: Aug 21, 2024 Billing Provider: MEG AYALA MD Common Visit Codes: [id number] INP/OBS CARE(HIGH) MEG AYALA MD Aug 21, 2024 12:49
[2024-08-21] MEDS: POTASSIUM EFFERVESENT TAB 25 MEQ PO ONE (14:58)
[2024-08-21] MEDS: ONDANSETRON HCL 4 MG/2 ML VIAL IV PRN (15:52)
[2024-08-21] MEDS: ACETAMINOPHEN 325 MG TAB PO PRN (20:21)
[2024-08-22] VITALS (8 sets, daily range): BP systolic 98–116; BP diastolic 45–58; PULSE 70–79; RESP 16–17; TEMP 96.8–98.7; O2SAT 92–96
[2024-08-22 08:00] LABS: Calcium 9.4 mg/dL (8.7-10.4); Chloride 105 mmol/L (98-107); Sodium 143 mmol/L (136-145)
[2024-08-22 08:01] LABS: Anion Gap 12 (5-15); Carbon Dioxide 26 mmol/L (20-31)
[2024-08-22 08:05] LABS: Potassium 3.2 mmol/L (3.5-5.1)
[2024-08-22 08:07] LABS: BUN/Creatinine Ratio 13.1 (10.0-20.0); Glucose 97 mg/dL (74-106)
[2024-08-22 08:09] LABS: Blood Urea Nitrogen 8 mg/dL (9-23)
--- NOTE | 2024-08-22 11:03 | DVHPN2 ---
Reviewed: Care Plan, H&P, Labs, Medications, Previous Orders, Radiology Changes from previous H/P or p: No Changes Musculoskeletal: other (Left flank pain) Objective Vitals Vital Signs Date Time Temp Pulse Resp B/P (MAP) Pulse Ox O2 Delivery O2 Flow Rate FiO2 08/22/24 09:00 96.8 71 16 98/56 (70) 96 96.8 08/21/24 20:00 Room Air* 0 21 Intake/Output Intake and Output 08/22/24 07:00 Intake Total 750 ml Balance 750 ml Intake Oral 700 ml IV Total 50 ml # Voids 10 # Bowel Movements 1 Medications Current Medications Medications Dose Ordered Sig/Veronica Route Start Time Stop Time Status Last Admin Dose Admin Ceftriaxone Sodium 50 ml @ 100 mls/hr DAILY@09 IV 08/20/24 12:45 08/22/24 08:59 100 MLS/HR Acetaminophen/ Hydrocodone Bitart 1 tab Q4HP PRN PO 08/20/24 12:45 Ondansetron HCl 4 mg Q4HP PRN IV 08/20/24 12:45 08/21/24 20:21 4 MG Acetaminophen 650 mg Q6HP PRN PO 08/20/24 12:45 08/22/24 03:36 650 MG Morphine Sulfate 2 mg Q4HPRN PRN IV 08/20/24 12:45 08/21/24 15:28 2 MG Atorvastatin Calcium 10 mg HS PO 08/20/24 22:00 08/21/24 21:43 10 MG Laboratory Results Laboratory Tests 08/21/24 05:29 08/22/24 06:38 Chemistry Test 08/22/24 06:38 Calcium Level 9.4 mg/dL (8.7-10.4) Urinalysis Test 08/20/24 08:27 Urine Color Colorless (Yellow) Urine Clarity Turbid (Clear) H Urine pH 6.5 (5.0-9.0) Urine Specific [place] 1.014 (1.001-1.035) Urine Protein Trace (Negative) H Urine Ketones 1+ (Negative) H Urine Blood 3+ /uL (Negative) H Urine Nitrite Negative (Negative) Urine Bilirubin Negative (Negative) Urine Urobilinogen Normal mg/dL (Negative) Urine Leukocyte Esterase 2+ /uL (Negative) Urine RBC 1846 /hpf (0 - 4) Urine Microscopic WBC 114 /HPF (0-5) H Urine Squamous Epithelial Cells Few /hpf (<5) Urine Bacteria None seen /hpf (None Seen) Urine Mucus Few (None Seen) Urine Glucose Normal mg/dL (Normal) Microbiology Microbiology Date/Time Source Procedure Growth Status 08/21/24 17:55 Voided Urine Urine Culture - Preliminary Resulted 08/20/24 10:30 Blood Blood Culture - Preliminary NO GROWTH AFTER 48 HOURS OF INCUBATION. Resulted Labs and/or images reviewed: Labs reviewed by me, Image(s) reviewed by me Assessment/Plan Assessment/Plan Acute left flank pain secondary to acute pyelonephritis: CT abdomen pelvis without contrast negative for any kidney stones, kidney ultrasound negative Acute pyelonephritis Acute urinary tract infection: Blood cultures negative, urine cultures negative, continue Rocephin Sepsis secondary to urinary tract infection History of hernia surgery History of back surgery : [place] [facility] hypokalemia potassium 3.2: Replace potassium Patient feels better today Examined the patient with the help of record changer Plan discussed with: Patient My Orders Orders - MEG AYALA MD Procedure Category Date Status Time Urine Bacterial LASHAWN 08/21/24 In Process Culture 12:48 Date of Service: Aug 22, 2024 Billing Provider: MEG AYALA MD Common Visit Codes: [id number] INP/OBS CARE(HIGH) MEG AYALA MD Aug 22, 2024 11:03
[2024-08-23 01:00] VITALS: BP 105/36; PULSE 66; RESP 17; TEMP 98.2; O2SAT 93
[2024-08-23 05:00] VITALS: BP 95/41; PULSE 73; RESP 17; TEMP 97.8; O2SAT 96
[2024-08-23 08:00] VITALS: PULSE 74
[2024-08-23 09:00] VITALS: BP 121/50; PULSE 71; RESP 16; TEMP 97.6; O2SAT 96
[2024-08-23] MEDS ORDERED: CIPR-173 PO (12:17)
[2024-08-23] MEDS ORDERED: TRAM-626 PO (12:17)
--- NOTE | 2024-08-23 12:19 | DVHPN2 ---
Reviewed: Care Plan, H&P, Labs, Medications, Previous Orders, Radiology Changes from previous H/P or p: No Changes Musculoskeletal: other (Left flank pain) Objective Vitals Vital Signs Date Time Temp Pulse Resp B/P (MAP) Pulse Ox O2 Delivery O2 Flow Rate FiO2 08/23/24 09:00 97.6 71 16 121/50 (73) 96 97.6 08/23/24 08:00 Room Air* 0 21 Intake/Output Intake and Output 08/23/24 07:00 Intake Total 730 ml Balance 730 ml Intake Oral 680 ml IV Total 50 ml # Voids 8 # Bowel Movements 2 Medications Current Medications Medications Dose Ordered Sig/Veronica Route Start Time Stop Time Status Last Admin Dose Admin Ceftriaxone Sodium 50 ml @ 100 mls/hr DAILY@09 IV 08/20/24 12:45 08/23/24 10:10 100 MLS/HR Acetaminophen/ Hydrocodone Bitart 1 tab Q4HP PRN PO 08/20/24 12:45 Ondansetron HCl 4 mg Q4HP PRN IV 08/20/24 12:45 08/21/24 20:21 4 MG Acetaminophen 650 mg Q6HP PRN PO 08/20/24 12:45 08/22/24 03:36 650 MG Morphine Sulfate 2 mg Q4HPRN PRN IV 08/20/24 12:45 08/22/24 20:24 2 MG Atorvastatin Calcium 10 mg HS PO 08/20/24 22:00 08/22/24 21:48 10 MG Laboratory Results Laboratory Tests 08/21/24 05:29 08/22/24 06:38 Urinalysis Test 08/20/24 08:27 Urine Color Colorless (Yellow) Urine Clarity Turbid (Clear) H Urine pH 6.5 (5.0-9.0) Urine Specific [place] 1.014 (1.001-1.035) Urine Protein Trace (Negative) H Urine Ketones 1+ (Negative) H Urine Blood 3+ /uL (Negative) H Urine Nitrite Negative (Negative) Urine Bilirubin Negative (Negative) Urine Urobilinogen Normal mg/dL (Negative) Urine Leukocyte Esterase 2+ /uL (Negative) Urine RBC 1846 /hpf (0 - 4) Urine Microscopic WBC 114 /HPF (0-5) H Urine Squamous Epithelial Cells Few /hpf (<5) Urine Bacteria None seen /hpf (None Seen) Urine Mucus Few (None Seen) Urine Glucose Normal mg/dL (Normal) Microbiology Microbiology Date/Time Source Procedure Growth Status 08/21/24 17:55 Voided Urine Urine Culture - Preliminary Resulted 08/20/24 10:30 Blood Blood Culture - Preliminary NO GROWTH AFTER 72 HOURS OF INCUBATION. Resulted Labs and/or images reviewed: Labs reviewed by me, Image(s) reviewed by me Assessment/Plan Assessment/Plan Acute left flank pain secondary to acute pyelonephritis: CT abdomen pelvis without contrast negative for any kidney stones, kidney ultrasound negative Acute pyelonephritis Acute urinary tract infection: Blood cultures negative, urine cultures negative, continue Rocephin Sepsis secondary to urinary tract infection History of hernia surgery History of back surgery : [place] [facility] hypokalemia potassium 3.2: Replace potassium Patient feels better today Examined the patient with the help of district sales manager Plan discussed with: Patient Date of Service: Aug 23, 2024 Billing Provider: MEG AYALA MD Common Visit Codes: [id number] INP/OBS CARE(HIGH) MEG AYALA MD Aug 23, 2024 12:19
--- NOTE | 2024-08-23 12:22 | DVHDS2 ---
Discharge Summary Date of Admission Aug 20, 2024 at 12:39 Date of Discharge: Aug 23, 2024 Admitting Diagnosis Left flank pain Wounds: None Labs/Diagnostic Data: Laboratory Results Test 08/22/24 06:38 08/21/24 05:29 08/20/24 10:30 08/20/24 08:27 Sodium Level 143 mmol/L (136-145) Potassium Level 3.2 mmol/L (3.5-5.1) Chloride Level 105 mmol/L (98-107) Carbon Dioxide Level 26 mmol/L (20-31) Anion Gap 12 (5-15) Blood Urea Nitrogen 8 mg/dL (9-23) Creatinine 0.61 mg/dL (0.550-1.02) Glomerular Filtration Rate Calc 99 mL/min (>90) BUN/Creatinine Ratio 13.1 (10.0-20.0) Serum Glucose 97 mg/dL (74-106) Calcium Level 9.4 mg/dL (8.7-10.4) White Blood Count 10.2 10^3/uL (4.4-10.8) Red Blood Count 3.94 10^6/uL (4.0-5.20) Hemoglobin 11.7 g/dL (12.2-16.2) Hematocrit 33.9 % (36.0-46.0) Mean Corpuscular Volume 85.9 fL (80.0-100.0) Mean Corpuscular Hemoglobin 29.6 pg (28.0-32.0) Mean Corpuscular Hemoglobin Concent 34.5 g/dL (32.0-36.0) Red Cell Distribution Width 13.5 % (11.8-14.3) Platelet Count 195 10^3/uL (140-450) Mean Platelet Volume 8.3 fL (6.9-10.8) Neutrophils (%) (Auto) 69.9 % (37.0-80.0) Lymphocytes (%) (Auto) 21.8 % (10.0-50.0) Monocytes (%) (Auto) 8.1 % (0.0-12.0) Eosinophils (%) (Auto) 0.0 % (0.0-7.0) Basophils (%) (Auto) 0.2 % (0.0-2.0) Neutrophils # (Auto) 7.1 10 ^3/uL (1.6-8.6) Lymphocytes # (Auto) 2.2 10 ^3/uL (0.4-5.4) Monocytes # (Auto) 0.8 10 ^3/uL (0-1.3) Eosinophils # (Auto) 0 10 ^3/uL (0-0.8) Basophils # (Auto) 0 10 ^3/uL (0-0.2) Nucleated Red Blood Cells 0.1 % Total Bilirubin 0.4 mg/dL (0.2-1.0) Aspartate Amino Transferase (AST) 19 U/L (<34) Alanine Aminotransferase (ALT) 19 U/L (7-40) Alkaline Phosphatase 97 U/L (46-116) Total Protein 6.0 g/dL (5.7-8.2) Albumin 3.7 g/dL (3.2-4.8) Lactic Acid Level 0.9 mmol/L (0.4-2.0) Urine Color Colorless (Yellow) Urine Clarity Turbid (Clear) Urine pH 6.5 (5.0-9.0) Urine Specific [place] 1.014 (1.001-1.035) Urine Protein Trace (Negative) Urine Ketones 1+ (Negative) Urine Blood 3+ /uL (Negative) Urine Nitrite Negative (Negative) Urine Bilirubin Negative (Negative) Urine Urobilinogen Normal mg/dL (Negative) Urine Leukocyte Esterase 2+ /uL (Negative) Urine RBC 1846 /hpf (0 - 4) Urine Microscopic WBC 114 /HPF (0-5) Urine Squamous Epithelial Cells Few /hpf (<5) Urine Bacteria None seen /hpf (None Seen) Urine Mucus Few (None Seen) Urine Glucose Normal mg/dL (Normal) Other Laboratory Tests 08/22/24 06:38 08/21/24 05:29 Brief Hx & Hospital Course: 64-year-old female came in for acute left flank pain history of hernia surgery and back surgery on [place]. CT abdomen pelvis without contrast was negative for any kidney stones. Kidney ultrasound negative patient had acute pyelonephritis secondary to urinary tract infection blood cultures negative urine cultures negative treated with Rocephin pain medications and IV fluids patient feels better afebrile and being discharged home on Cipro and tramadol. Consults/Reason for consult None Operations or Procedures CT abdomen pelvis without contrast Condition at Discharge: Fair Final Diagnosis/Problems List Acute left flank pain secondary to acute pyelonephritis: CT abdomen pelvis without contrast negative for any kidney stones, kidney ultrasound negative Acute pyelonephritis Acute urinary tract infection: Blood cultures negative, urine cultures negative, continue Rocephin Sepsis secondary to urinary tract infection History of hernia surgery History of back surgery : [place] [facility] hypokalemia potassium 3.2: Replace potassium Patient feels better today Discharge Disposition: Home Discharge Instruct/Medications Diet: Regular Activity: Light activity Follow Up/Referral: Follow up with the primary Dr Medications: Cipro Tramadol Sent to pharmacy 39 (Time taken for discharge summary 39 minutes) Discharge Statement: "Patient was advised to return to the ER or call 911 if any headaches, dizziness, shortness of breath, chest pain, abdominal pain, bleeding, fevers, or worsening of medical condition. Patient was counseled about treatment plan, medications, possible side effects, patientverbalized understanding. All questions were answered to the best of my ability. This discharge took greater then 30 minutes in planning, reviewing documentation, counseling the patient, and discussing with other team members." ASSESSMENT ASSESSMENT Hospital Course Improved Assessment Acute left flank pain secondary to acute pyelonephritis: CT abdomen pelvis without contrast negative for any kidney stones, kidney ultrasound negative Acute pyelonephritis Acute urinary tract infection: Blood cultures negative, urine cultures negative, continue Rocephin Sepsis secondary to urinary tract infection History of hernia surgery History of back surgery : [place] [facility] hypokalemia potassium 3.2: Replace potassium Patient feels better today Date of Service: Aug 23, 2024 Billing Provider: MEG AYALA MD Common Visit Codes: [id number] DISCH DAY >30min MEG AYALA MD Aug 23, 2024 12:22
[2024-08-23 13:00] VITALS: BP 92/51; PULSE 68; RESP 17; TEMP 97.7; O2SAT 97
== END 2024-08-23 14:32 | disposition home or self-care (01) | DRG 872 ==
LOC: ER 08:15 → OVERFLOW 12:39 → TELE-WESTW 22:34
PROVIDERS: ADMIT Family Medicine; ATTEND Family Medicine
DX: A41.9 Sepsis, unspecified organism (principal); N10 Acute pyelonephritis; K76.0 Fatty (change of) liver, not elsewhere classified; E87.6 Hypokalemia
CPT/HCPCS: 36415; 74176; 76775; 80048; 80053; 81001; 83605; 85025; 87040; 87086; 96365; 96375; 99291; G0378; J2405